=== PATIENT | male | born 2000 | race African-American/Black ===

== ENCOUNTER 2019-03-14 01:53 | Emergency (ER) | payer MEDICAID, SELFPAY ==
[~2019-03-14] VITALS: Ht 162.6 cm; Wt 61.9 kg
[2019-03-14] MEDS ORDERED: NS 1,000 ML IV ONE (02:15)
[2019-03-14 02:21] LABS: BASO % 0.3 % (0.0-1.0); EOS % 0.1 % (0.0-3.0); HEMATOCRIT 49.3 % (42.0-52.0); HEMOGLOBIN 16.7 g/dl (13.5-17.5); LYMPH # 2.2 10^3/uL (1.5-5.0); MEAN CORPUSCULAR HEMOGLOBIN 31.3 pg (27.0-33.0); MEAN CORPUSCULAR HGB CONC 33.9 g/dl (32.0-36.5); MEAN CORPUSCULAR VOLUME 92.5 fl (80.0-96.0); MONO # 0.4 10^3/uL (0.0-0.8); MONO % 3.6 % (0.0-5.0); NEUTROPHILS # 7.5 10^3/uL (1.5-8.5); NEUTROPHILS % 73.8 % (36.0-66.0); PLATELET COUNT, AUTOMATED 231 10^3/uL (150-450); RED BLOOD COUNT 5.33 10^6/uL (4.30-6.10); WHITE BLOOD COUNT 10.1 10^3/uL (4.0-10.0)
[2019-03-14 02:52] LABS: BLOOD UREA NITROGEN 10 MG/DL (7-18); CALCIUM LEVEL 8.9 MG/DL (8.5-10.1); CARBON DIOXIDE LEVEL 27 MEQ/L (21-32); CHLORIDE LEVEL 112 MEQ/L (98-107); CPK CREATINE PHOSPHOKINASE 439 U/L (39-308); CREATININE FOR GFR 1.14 MG/DL (0.70-1.30); ETHYL ALCOHOL (ETHANOL) 0.294 % (0.000-0.010); GLUCOSE, FASTING 87 MG/DL (70-100); POTASSIUM SERUM 3.7 MEQ/L (3.5-5.1); SODIUM LEVEL 147 MEQ/L (136-145)
[2019-03-14 09:25] VITALS: BP 115/51
== END 2019-03-14 09:35 | disposition home or self-care (01) ==
LOC: M ED 01:53
DX: F10.121 Alcohol abuse with intoxication delirium (principal)
CPT/HCPCS: 80048; 82550; 85025; 96360; 96361; 99285; G0480

== ENCOUNTER 2021-01-13 22:55 | Emergency (ER) | payer MEDICAID, SELFPAY ==
[~2021-01-13] VITALS: Ht 162.6 cm; Wt 65.3 kg
[2021-01-14 01:11] VITALS: BP 122/57
== END 2021-01-14 01:13 | disposition home or self-care (01) ==
LOC: M ED 22:55
DX: Z11.52 Encounter for screening for COVID-19 (principal); Z20.822 Contact with and (suspected) exposure to COVID-19
CPT/HCPCS: 99283; U0003

== ENCOUNTER 2021-03-10 06:37 | Emergency (ER) | payer MEDICAID, SELFPAY ==
[~2021-03-10] VITALS: Ht 162.6 cm; Wt 65.9 kg
[2021-03-10 06:37] VITALS: BP 119/75
[2021-03-10 11:02] LABS: GC DNA AMPLIFICATION NEGATIVE (NEGATIVE)
[2021-03-10] MEDS ORDERED: DOXY-443 PO (12:26)
[2021-03-12 11:21] LABS: HIV 1&2 SCREEN CENTAUR NEGATIVE (NEGATIVE)
== END 2021-03-10 12:31 | disposition home or self-care (01) ==
LOC: M ED 06:37
DX: N45.1 Epididymitis (principal); Z20.2 Contact with and (suspected) exposure to infections with a predominantly sexual mode of transmission

== ENCOUNTER → 2022-11-18 | Outpatient (REF) | payer OTHER ==
[~2022-11-18] MED LIST: DOXY-443 PO; FLAG500T PO
[2022-11-18 22:11] LABS: APPEARANCE, URINE CLEAR (CLEAR); BACTERIA, URINE AUTO NEGATIVE (NEGATIVE); BILIRUBIN, URINE AUTO NEGATIVE (NEGATIVE); BLOOD, URINE BLOOD NEGATIVE (NEGATIVE); COLOR, URINE YELLOW (YELLOW); GLUCOSE, URINE (UA) AUTO NEGATIVE (NEGATIVE); KETONE, URINE AUTO NEGATIVE (NEGATIVE); LEUKOCYTE ESTERASE, URINE AUTO 2+ (NEGATIVE); NITRITE, URINE AUTO NEGATIVE (NEGATIVE); PROTEIN, URINE AUTO NEGATIVE (NEGATIVE); RBC, URINE AUTO 1 /HPF (0-3); SPECIFIC GRAVITY URINE AUTO 1.016 (1.002-1.035); SQUAMOUS EPITHELIAL CELL UR AU 1 /HPF (0-6); WBC, URINE AUTO 24 /HPF (0-3)
[2022-11-18 23:23] LABS: GC DNA AMPLIFICATION NEGATIVE (NEGATIVE)
== END ==
LOC: M LAB REF 21:35
PROVIDERS: ATTEND Physician Assistant
DX: N39.0 Urinary tract infection, site not specified (principal)